=== PATIENT | female | born 1970 | race Two or more races ===

== ENCOUNTER 2017-11-03 20:06 | Emergency (ER) | payer BC ==
[2017-11-03 20:26] VITALS: BP 118/79; PULSE 64; TEMP 98.5; BMI 25.0
--- NOTE | 2017-11-03 20:27 | PDOC ---
Rapid Medical Evaluation Chief Complaint: Injury Time Seen by Provider: 11/03/17 20:24 Medical Evaluation: Allergies Allergy/AdvReac Type Severity Reaction Status Date / Time No Known Allergies Allergy Verified 11/10/11 10:20 I have performed a brief in-person evaluation of this patient. The patient presents with a chief complaint of: finger pain. patient fell off a swing onto her fingers Pertinent physical exam findings: swelling and black and blue to fingers b/l hands I have ordered the following: xrays fingers The patient will proceed to the ED for further evaluation. Discharge Disposition - Diagnosis Finger pain - Referrals - Patient Instructions - Post Discharge Activity
--- NOTE | 2017-11-03 20:51 | PDOC ---
History of Present Illness - General Chief Complaint: Injury Stated Complaint: INJURY Time Seen by Provider: 11/03/17 20:24 - History of Present Illness Initial Comments: 47-year-old female without comorbidities presents for evaluation of left fourth and fifth finger pain after falling off a swing. No loss of consciousness she did not hit her head no post injury nausea vomiting or headache. She also has pain to the right hand. 11/03/17 20:48 Past History - Past Medical History Allergies/Adverse Reactions: Allergies Allergy/AdvReac Type Severity Reaction Status Date / Time No Known Allergies Allergy Verified 11/03/17 20:26 Home Medications: Ambulatory Orders Iron 18 mg PO 03/13/13 Ibuprofen [Motrin -] 400 mg PO PRN PRN 03/14/13 Anemia: Yes (IRON DEFICIENCY ANEMIA) Asthma: No Cancer: No Cardiac Disorders: No CVA: No COPD: No CHF: No Dementia: No Diabetes: No GI Disorders: Yes (HEMORROIDS;) Disorders: No HTN: No Hypercholesterolemia: No Liver Disease: No Seizures: No Thyroid Disease: No - Surgical History Abdominal Surgery: No Appendectomy: No Cardiac Surgery: No Cholecystectomy: No Lung Surgery: No Neurologic Surgery: No Orthopedic Surgery: No - Suicide/Smoking/Psychosocial Hx Smoking History: Never smoked Have you smoked in the past 12 months: No Information on smoking cessation initiated: No Hx Alcohol Use: No Drug/Substance Use Hx: No Substance Use Type: None Review of Systems - Review of Systems Musculoskeletal: Yes: Joint Pain All Other Systems: Reviewed and Negative *Physical Exam - Vital Signs Last Vital Signs Temp Pulse Resp BP Pulse Ox 98.5 F 64 18 118/79 100 11/03/17 20:24 11/03/17 20:24 11/03/17 20:24 11/03/17 20:24 11/03/17 20:24 - Physical Exam Comments: Left fourth and fifth fingers are swollen its difficult to evaluate FDP function FDS function in fourth and fifth fingers well-preserved all of the fingers are normal. There is mild ecchymosis. No gross sensorimotor deficits she is neurovascular intact. Tenderness over the middle phalanx of the left fourth and third finger. She has full range of motion of all the fingers in her right hand without any gross sensorimotor deficits minimal tenderness over the second third and fourth PIPJ 11/03/17 20:49 Medical Decision Making - Medical Decision Making There are fractures of the left third and fourth middle phalanx. They were bernabe taped and hand surgery follow-up was given. 11/03/17 20:47 *DC/Admit/Observation/Transfer Diagnosis at time of Disposition: Finger pain, Fracture, finger - Referrals Referrals: Dion Jack MD [Staff Physician] - - Patient Instructions Printed Discharge Instructions: Finger Fracture, DI for Finger Fracture Additional Instructions: Keep the fingers taped a new left hand until you are seen by hand surgery. Please follow-up with hand surgery for further evaluation and treatment options. Follow-up within 1-2 days for further hand surgery. Return to the emergency room should symptoms worsen or go unresolved. May take Tylenol and Motrin for pain. - Post Discharge Activity
== END 2017-11-03 20:57 | disposition home or self-care (01) ==
LOC: JERFT 20:06
PROC: 2W3KXYZ Immobilization of Left Finger using Other Device (ICD-10-PCS; principal; 2017-11-03)
DX: S62.623A Displaced fracture of middle phalanx of left middle finger, initial encounter for closed fracture (principal); S62.625A Displaced fracture of middle phalanx of left ring finger, initial encounter for closed fracture; W09.1XXA Fall from playground swing, initial encounter; Y93.89 Activity, other specified; Y92.89 Other specified places as the place of occurrence of the external cause; D50.9 Iron deficiency anemia, unspecified
CPT/HCPCS: 73140-TC-LT-FY; 73140-TC-RT-FY; 99281-25

== ENCOUNTER 2019-04-25 20:24 | Emergency (ER) | payer BC ==
[2019-04-25] MEDS ORDERED: DEXAMETHASONE LIQUID 0.5 MG/5 ML PO ONE (20:43)
[2019-04-25 20:44] VITALS: BP 117/69; PULSE 114; TEMP 99.9; BMI 25.0
--- NOTE | 2019-04-25 20:44 | PDOC ---
Rapid Medical Evaluation Time Seen by Provider: 04/25/19 20:34 Medical Evaluation: Allergies Allergy/AdvReac Type Severity Reaction Status Date / Time No Known Allergies Allergy Verified 11/03/17 20:26 04/25/19 20:40 CC: known flu now with "choking sensation" PE: No stridor. +wheezes Orders: soft tissue CT neck, decadron, duoneb Patient will proceed to ER for further evaluation. 04/25/19 20:44 Discharge Disposition - Diagnosis Choking sensation - Referrals - Patient Instructions - Post Discharge Activity
[2019-04-25] MEDS ORDERED: DEXAMETHASONE SOD PHOSPHATE 10 MG/1 ML VIAL ONE (21:52)
[2019-04-25] MEDS ORDERED: ALBUTEROL SO4 2.5/IPRATROPIUM 0.5 INH SOL 3 ML VIAL.NEB. NEB ONE (21:52)
--- NOTE | 2019-04-25 22:01 | PDOC ---
Attending Attestation - Resident Resident Name: Qing Mata - ED Attending Attestation I have performed the following: I have examined & evaluated the patient, The case was reviewed & discussed with the resident, I agree w/resident's findings & plan - HPI HPI: 04/25/19 22:47 see resident hpi - Physicial Exam PE: 04/25/19 22:47 see resident exam - Medical Decision Making 04/25/19 22:47 49-year-old female with sore throat and choking sensation CT scan soft tissue of the neck was negative for obstruction or collection Plan for rapid strep, steroids and DC home
[2019-04-25] MEDS: ALBUTEROL SO4 2.5/IPRATROPIUM 0.5 INH SOL 3 ML VIAL.NEB. NEB SCH ×2 (22:02)
[2019-04-25] MEDS ORDERED: ACETAMINOPHEN 1000 MG/100 ML VIAL (NON FORMULARY) IVPB ONE (22:03)
[2019-04-25] MEDS ORDERED: SODIUM CHLORIDE 1,000 ML IV STA (22:03)
[2019-04-25] MEDS ORDERED: ACETAMINOPHEN INJECTION 100 ML IVPB ONE (22:08)
[2019-04-25 22:48] LABS: BASO % 0.2 % (0-2.0); HEMATOCRIT 36.1 % (32.4-45.2); HEMOGLOBIN 11.9 GM/dL (10.7-15.3); LYMPH % 14.6 % (8-40); MCH 26.6 pg (25.7-33.7); MCHC 32.9 g/dl (32.0-36.0); MEAN CELL VOLUME 80.9 fl (80-96); MEAN PLT VOLUME 8.8 fl (7.5-11.1); MONO % 3.3 % (3.8-10.2); NEUT % 81.9 % (42.8-82.8); PLATELET COUNT 179 K/MM3 (134-434); RBC 4.46 M/mm3 (3.60-5.2); RDW 13.2 % (11.6-15.6); WHITE BLOOD COUNT 8.4 K/mm3 (4.0-10.0)
--- NOTE | 2019-04-25 23:01 | PDOC ---
History of Present Illness - General Chief Complaint: Shortness of Breath Stated Complaint: SHORTNESS OF BREATH/COUGHING/FEVER Time Seen by Provider: 04/25/19 20:34 History Source: Patient, Family Exam Limitations: Language Barrier - History of Present Illness Initial Comments: 04/25/19 23:01 49y F with no significant PMH presenting to ED with complaints of sore throat and choking sensation. Symptoms have been going on for the past 3 days and getting progressively worse. Pt went to urgent care yesterday and was diagnosed with the flu and was started on Tamiflu. She is also taking ibuprofen (last taken 8pm). She endorses sore throat which is preventing her from eating. Family states that today pt was gasping for air so they brought her to the ER. She has had fevers at home up to 101. Endorses cough productive of yellow sputum. Denies n/v/d, neck stiffness, rash, urinary symptoms, chest pain, abdominal pain. No recent travel. PMD: Hadi PMH: none PSH: none Meds: tamiflu, ibuprofen Allergies: nkda Past History - Past Medical History Allergies/Adverse Reactions: Allergies Allergy/AdvReac Type Severity Reaction Status Date / Time No Known Allergies Allergy Verified 11/03/17 20:26 Home Medications: Ambulatory Orders Iron 18 mg PO 03/13/13 Ibuprofen [Motrin -] 400 mg PO PRN PRN 03/14/13 Inhaler, Assist Devices [Space Chamber Plus] 1 each MC DAILY #1 spacer 04/25/19 Anemia: Yes (IRON DEFICIENCY ANEMIA) Asthma: No Cancer: No Cardiac Disorders: No CVA: No COPD: No CHF: No Dementia: No Diabetes: No GI Disorders: Yes (HEMORROIDS;) Disorders: No HTN: No Hypercholesterolemia: No Liver Disease: No Seizures: No Thyroid Disease: No - Surgical History Abdominal Surgery: No Appendectomy: No Cardiac Surgery: No Cholecystectomy: No Lung Surgery: No Neurologic Surgery: No Orthopedic Surgery: No - Psycho Social/Smoking Cessation Hx Smoking History: Never smoked Have you smoked in the past 12 months: No Hx Alcohol Use: No Drug/Substance Use Hx: No Substance Use Type: None *Physical Exam - Vital Signs Last Vital Signs Temp Pulse Resp BP Pulse Ox 99.9 F H 114 H 20 117/69 96 04/25/19 20:38 04/25/19 20:38 04/25/19 20:38 04/25/19 20:38 04/25/19 20:38 ED Treatment Course - LABORATORY CBC & Chemistry Diagram: 04/25/19 22:38 04/25/19 22:38 - RADIOLOGY Radiology Studies Ordered: Category Date Time Status CHEST PA & LAT [RAD] Stat Radiology 04/25/19 22:03 Taken - Medications Given in the ED: ED Medications Discontinued Medications Generic Name Dose Route Start Last Admin Trade Name Leatha PRN Reason Stop Dose Admin Albuterol/Ipratropium 1 amp 04/25/19 20:45 04/25/19 22:02 Duoneb - NEB 04/25/19 21:31 1 amp Q15M NATASHA Administration Dexamethasone 10 mg 04/25/19 20:43 04/25/19 22:02 Decadron Liquid - PO 04/25/19 20:44 10 mg ONCE ONE Administration Medical Decision Making - Medical Decision Making 04/25/19 23:15 49y F with no significant pmh presenting to ED for sore throat and sob. diagnosed with flu. vitals show tachycardia, low grade fever. can be explained by flu. pt does not have stridor or wheezing. ct neck ordered by keenan and vinh. ct neck negative for soft tissue swelling. will order strep, basic labs, cxr to r/o strep, pna. giving fluds, ofirmev. reassess. cxr negative for infiltrates, ptx, consolidations. no white count, negative strep. pending chemistries. likely dc home. will advise for pcp f/u and will give return precautions. family requesting spacer. rx sent to pharmacy. pt feeling better. chem shows elevated lfts however pt does not have abdominal pain, n/v/d. likely from viral illness/meds. safe for dc home. Discharge - Discharge Information Problems reviewed: Yes Clinical Impression/Diagnosis: Sore throat, Flu Condition: Good Disposition: HOME - Admission No - Additional Discharge Information Prescriptions: Inhaler, Assist Devices [Space Chamber Plus] 1 each MC DAILY #1 spacer - Follow up/Referral Referrals: Shira Espinoza MD [Primary Care Provider] - - Patient Discharge Instructions Patient Printed Discharge Instructions: Sore Throat, Influenza Additional Instructions: The xray, CT scan, and blood work are normal. This is all due to the flu. Please keep yourself well hydrated. You can try a humidifier and Cepacol (or other lozenges) for the sore throat. Please make an appointment with your doctor in the next few days. come back to the emergency room if sore throat gets worse, headaches get worse, you have difficulty breathing or if any new or concerning symptom develops. Thank you - Post Discharge Activity
[2019-04-25 23:15] LABS: ALBUMIN 3.7 g/dl (3.4-5.0); BILIRUBIN,TOTAL 0.3 mg/dL (0.2-1); BLOOD UREA NITROGEN 5.7 mg/dL (7-18); CREATININE 0.8 mg/dL (0.55-1.3); POTASSIUM 3.5 mmol/L (3.5-5.1); TOT PROT 7.2 g/dl (6.4-8.2)
== END 2019-04-26 00:10 | disposition home or self-care (01) ==
LOC: JER 20:24
PROC: 3E0F7GC Introduction of Other Therapeutic Substance into Respiratory Tract, Via Natural or Artificial Opening (ICD-10-PCS; principal; 2019-04-25)
PROC: 3E033NZ Introduction of Analgesics, Hypnotics, Sedatives into Peripheral Vein, Percutaneous Approach (ICD-10-PCS; 2019-04-25)
DX: J11.1 Influenza due to unidentified influenza virus with other respiratory manifestations (principal); J02.9 Acute pharyngitis, unspecified; D50.9 Iron deficiency anemia, unspecified
CPT/HCPCS: 36415; 70490-TC; 71046-TC-FY; 80053; 85025; 87070; 87880; 99282-25; J0131; J7030